=== PATIENT | female | born 1965 | race Caucasian/White ===

== ENCOUNTER 2023-06-27 15:45 | Inpatient (IN) | payer MEDICARE, MEDICAID ==
[2023-06-27 16:47] LABS: BASOPHILS ABSOLUTE AUTO 0.02 10^3/uL (0.00-0.50); BASOPHILS PERCENT AUTO 0.5 % (0-1); EOSINOPHILS PERCENT AUTO 4.8 % (0-6); HEMATOCRIT 36.1 % (37.0-47.0); HEMOGLOBIN 11.9 g/dL (12.0-16.0); IMMATURE GRAN ABSOLUTE AUTO 0.03 10^3/uL (0.00-0.49); IMMATURE GRAN PERCENT AUTO 0.7 % (0.0-4.9); LYMPHOCYTES ABSOLUTE AUTO 1.09 10^3/uL (0.60-5.00); LYMPHOCYTES PERCENT AUTO 25.9 % (24-44); MEAN CORPUSCULAR HEMOGLOBIN 29.8 pg (27.0-32.0); MEAN CORPUSCULAR VOLUME 90.3 fL (83.0-97.0); MONOCYTES PERCENT AUTO 4.8 % (0-10); NEUTROPHILS ABSOLUTE AUTO 2.67 x10^3/uL (1.80-8.00); NEUTROPHILS PERCENT AUTO 63.3 % (41-71); PLATELET COUNT,PLT 321 10^3/uL (150-400); WHITE BLOOD CELL COUNT,WBC 4.2 10^3/uL (4.0-11.0)
[2023-06-27 17:08] LABS: ALBUMIN 3.4 g/dL (3.4-5.0); BILIRUBIN TOTAL 0.3 mg/dL (0.0-1.0); CALCIUM 8.8 mg/dL (8.4-10.1); CREATININE 1.3 mg/dL (0.6-1.0); EST CRCL DRUG DOSING (CG) 42.44 mL/min; POTASSIUM,K 3.2 mEq/L (3.5-5.0); PROTEIN TOTAL,TP 6.6 g/dL (6.4-8.2)
[2023-06-27] MEDS ORDERED: Potassium Chloride 10 MEQ Tab.ER PO ONE (17:35)
[2023-06-27 17:50] LABS: AMPHETAMINES,URINE NEGATIVE (NEGATIVE); BARBITURATES,URINE NEGATIVE (NEGATIVE); BENZODIAZEPINE,URINE NEGATIVE (NEGATIVE); MDMA (ECSTASY), URINE NEGATIVE (NEGATIVE); METHADONE,URINE NEGATIVE (NEGATIVE); METHAMPHETAMINES,URINE NEGATIVE (NEGATIVE); OPIATES,URINE NEGATIVE (NEGATIVE); OXYCODONE,URINE NEGATIVE (NEGATIVE); PHENCYCLIDINE,URINE NEGATIVE (NEGATIVE); TCA,URINE NEGATIVE (NEGATIVE)
[2023-06-27 18:02] LABS: TSH ULTRASENSITIVE 192.9 uIU/mL (0.36-5.60)
[2023-06-27 18:03] LABS: T4 FREE 0.1 ng/dL (0.8-1.6)
[2023-06-27] MEDS: Levothyroxine 125 MCG Tab PO SCH (18:35)
[2023-06-27] MEDS ORDERED: Docusate Sodium 100 MG Cap PO PRN (22:18)
[2023-06-27] MEDS ORDERED: Haloperidol Lactate 5 MG/ML SDV IM PRN (22:18)
[2023-06-27] MEDS ORDERED: LORazepam 0.5 MG Tab PO PRN (22:18)
[2023-06-27] MEDS ORDERED: Polyethylene Glycol 3350 Powder 17 GM Packet PO PRN (22:18)
[2023-06-28] MEDS: Levothyroxine 125 MCG Tab PO SCH (06:41)
[2023-06-28] MEDS ORDERED: Levothyroxine 125 MCG Tab PO SCH (07:00)
[2023-06-28 08:19] LABS: BASOPHILS ABSOLUTE AUTO 0.02 10^3/uL (0.00-0.50); BASOPHILS PERCENT AUTO 0.4 % (0-1); EOSINOPHILS ABSOLUTE AUTO 0.27 10^3/uL (0.00-1.50); EOSINOPHILS PERCENT AUTO 5.8 % (0-6); HEMATOCRIT 38.5 % (37.0-47.0); HEMOGLOBIN 12.6 g/dL (12.0-16.0); IMMATURE GRAN ABSOLUTE AUTO 0.03 10^3/uL (0.00-0.49); IMMATURE GRAN PERCENT AUTO 0.6 % (0.0-4.9); LYMPHOCYTES ABSOLUTE AUTO 1.52 10^3/uL (0.60-5.00); LYMPHOCYTES PERCENT AUTO 32.8 % (24-44); MEAN CORPUSCULAR HEMOGLOBIN 29.4 pg (27.0-32.0); MEAN CORPUSCULAR HGB CONC 32.7 g/dL (32.0-36.0); MEAN CORPUSCULAR VOLUME 89.7 fL (83.0-97.0); MONOCYTES ABSOLUTE AUTO 0.33 10^3/uL (0.00-1.50); MONOCYTES PERCENT AUTO 7.1 % (0-10); NEUTROPHILS ABSOLUTE AUTO 2.47 x10^3/uL (1.80-8.00); NEUTROPHILS PERCENT AUTO 53.3 % (41-71); PLATELET COUNT,PLT 389 10^3/uL (150-400); RED BLOOD CELL COUNT 4.29 x10^6/uL (4.00-5.50); WHITE BLOOD CELL COUNT,WBC 4.6 10^3/uL (4.0-11.0)
[2023-06-28 08:32] LABS: ALBUMIN 3.5 g/dL (3.4-5.0); BILIRUBIN TOTAL 0.3 mg/dL (0.0-1.0); CALCIUM 8.7 mg/dL (8.4-10.1); CREATININE 1.1 mg/dL (0.6-1.0); EST CRCL DRUG DOSING (CG) 50.16 mL/min; POTASSIUM,K 3.5 mEq/L (3.5-5.0); PROTEIN TOTAL,TP 6.8 g/dL (6.4-8.2)
== END 2023-06-28 13:10 | DRG 641 ==
LOC: CC.ED 15:45 → CC.MS 21:56 → UNDOADMIN 22:02 → CC.MS 22:02 → UNDODISIN 06-28 13:10
PROVIDERS: ADMIT Nurse Practitioner; ATTEND Nurse Practitioner
DX: E87.1 Hypo-osmolality and hyponatremia (principal); F29 Unspecified psychosis not due to a substance or known physiological condition; Z91.148 Patient's other noncompliance with medication regimen for other reason; F20.0 Paranoid schizophrenia; E03.9 Hypothyroidism, unspecified; Z79.899 Other long term (current) drug therapy; Z98.890 Other specified postprocedural states
CPT/HCPCS: 36415; 80053; 80305-QW; 81025; 83735; 84439; 84443; 85025; 93005; 93010; 99223; 99238; 99285; A9270-GY